=== PATIENT | female | born 1990 | race Caucasian/White ===

== ENCOUNTER 2018-10-07 18:31 | Emergency (ER) | payer SELFPAY ==
[2018-10-07 18:37] VITALS: BP 126/70; PULSE 88; TEMP 99.3; BMI 28.7
[2018-10-07 20:05] LABS: BASO % 0.6 % (0-2.0); EOS % 2.6 % (0-4.5); HEMATOCRIT 43.2 % (32.4-45.2); HEMOGLOBIN 13.8 GM/dL (10.7-15.3); LYMPH % 51.8 % (8-40); MCH 26.2 pg (25.7-33.7); MEAN CELL VOLUME 82.1 fl (80-96); MEAN PLT VOLUME 7.9 fl (7.5-11.1); MONO % 8.7 % (3.8-10.2); NEUT % 36.3 % (42.8-82.8); PLATELET COUNT 286 K/MM3 (134-434); RBC 5.26 M/mm3 (3.60-5.2); WHITE BLOOD COUNT 5.2 K/mm3 (4.0-10.0)
[2018-10-07] MEDS ORDERED: ACETAMINOPHEN 325 MG TABLET (FP) PO ONE (20:07)
[2018-10-07 20:08] LABS: HYALINE CASTS 2 /lpf (0-8); URINE APPEARANCE CLEAR; URINE BILIRUBIN NEGATIVE (NEGATIVE); URINE COLOR YELLOW; URINE GLUCOSE (UA) NEGATIVE (NEGATIVE); URINE KETONE NEGATIVE (NEGATIVE); URINE LEUK ESTERASE NEGATIVE (NEGATIVE); URINE NITRITE NEGATIVE (NEGATIVE); URINE PROTEIN NEGATIVE (NEGATIVE); URINE RBC 92 /hpf (0-4); URINE WBC 1 /hpf (0-5)
[2018-10-07 20:25] LABS: ALBUMIN 3.8 g/dl (3.4-5.0); BILIRUBIN,TOTAL 0.5 mg/dL (0.2-1); BLOOD UREA NITROGEN 10.9 mg/dL (7-18); CALCIUM 8.7 mg/dL (8.5-10.1); CREATININE 0.7 mg/dL (0.55-1.3); TOT PROT 7.9 g/dl (6.4-8.2)
--- NOTE | 2018-10-09 01:31 | PDOC ---
Documentation entered by Alicia Lugo SCRIBE, acting as scribe for Subha Nevarez MD. Subha Nevarez MD: This documentation has been prepared by the Brittney crowe Brenda, SCRIBE, under my direction and personally reviewed by me in its entirety. I confirm that the documentation accurately reflects all work, treatment, procedures, and medical decision making performed by me. History of Present Illness - General Chief Complaint: Vaginal Bleeding Stated Complaint: ABD/PAIN/BLEEDING Time Seen by Provider: 10/07/18 18:54 History Source: Patient Exam Limitations: No Limitations - History of Present Illness Initial Comments: 10/07/18 19:41 The patient is a 28 year old female (), with no significant PMH who presents to the emergency department with vaginal bleeding occurring 1 hour ago at home, at her home. As per patient she was sitting down and upon getting up on her felt, she felt bleeding that splashed on the floor, and the stain was dark red, with no clots and the size of a grapefruit. The patient does endorse dizziness, SOB, nausea and intermittent left lower quadrant pain. She notes being sexually active with her , but denies possible . Patient also reports being tested for syphilis 2 months ago and came back positive. LMP was 09/16/18. The patient denies chest pain. Denies vomiting, diarrhea and constipation. Denies dysuria, frequency, urgency. Allergies: NKA Social history: None reported Past History - Past Medical History Allergies/Adverse Reactions: Allergies Allergy/AdvReac Type Severity Reaction Status Date / Time No Known Allergies Allergy Verified 10/07/18 18:36 Home Medications: Ambulatory Orders NK [No Known Home Medication] 10/07/18 COPD: No Other medical history: endomitriosis - Suicide/Smoking/Psychosocial Hx Smoking History: Never smoked Information on smoking cessation initiated: No Hx Alcohol Use: No Drug/Substance Use Hx: No Review of Systems - Review of Systems Able to Perform ROS?: Yes Comments:: 10/07/18 19:41 CONSTITUTIONAL: Absent: no chills, no fatigue EYES: Absent: visual changes ENT: Absent: ear pain, no sore throat CARDIOVASCULAR: Absent: chest pain, no palpitations RESPIRATORY:(+) SOB Absent: cough. GI: (+) Left lower quadrant abdominal pain. (+) Nausea. Absent: No vomiting, no constipation, no diarrhea GENITOURINARY: (+) Vaginal bleeding. Absent: dysuria, no frequency. MUSKULOSKELETAL: Absent: back pain, no arthralgia, no myalgia SKIN: Absent: rash NEURO: (+) Headache. (+) Dizziness. Absent: *Physical Exam - Vital Signs Last Vital Signs Temp Pulse Resp BP Pulse Ox 99.3 F 88 19 126/70 100 10/07/18 18:34 10/07/18 18:34 10/07/18 18:34 10/07/18 18:34 10/07/18 18:34 - Physical Exam Comments: 10/07/18 20:17 GENERAL: Well-appearing, well-nourished. No apparent distress. HEENT: Normocephalic, atraumatic. PERRL, EOM intact. CARDIOVASCULAR: Normal S1, S2. Regular rate and rhythm. PULMONARY: Clear to auscultation bilaterally. ABDOMEN: (+) Mild adnexal tenderness Soft, non-distended, non-tender. : (+) Mild blood in vaginal vault No CMT, No clots. EXTREMITIES: Normal ROM in all four extremities. No gross deformities. SKIN: Warm, dry. No rash NEUROLOGICAL: No focal neurological deficits. ED Treatment Course - LABORATORY CBC & Chemistry Diagram: 10/07/18 19:50 10/07/18 19:50 - ADDITIONAL ORDERS Additional order review: Laboratory Results 10/07/18 10/07/18 10/07/18 19:50 19:50 19:50 Sodium 141 Potassium 4.0 Chloride 107 Carbon Dioxide 29 Anion Gap 5 L BUN 10.9 Creatinine 0.7 Est GFR (CKD-EPI)AfAm 136.66 Est GFR (CKD-EPI)NonAf 117.91 Random Glucose 88 Calcium 8.7 Total Bilirubin 0.5 AST 18 ALT 22 Alkaline Phosphatase 93 Total Protein 7.9 Albumin 3.8 Serum , Qual Negative Urine Color Yellow Urine Appearance Clear Urine pH 6.0 Ur Specific [place] 1.016 Urine Protein Negative Urine Glucose (UA) Negative Urine Ketones Negative Urine Blood 3+ H Urine Nitrite Negative Urine Bilirubin Negative Urine Urobilinogen 1.0 Ur Leukocyte Esterase Negative Urine WBC (Auto) 1 Urine RBC (Auto) 92 Urine Casts (Auto) 2 U Epithel Cells (Auto) 3.0 Urine Bacteria (Auto) 34.0 Urine HCG, Qual 10/07/18 19:50 Sodium Potassium Chloride Carbon Dioxide Anion Gap BUN Creatinine Est GFR (CKD-EPI)AfAm Est GFR (CKD-EPI)NonAf Random Glucose Calcium Total Bilirubin AST ALT Alkaline Phosphatase Total Protein Albumin Serum , Qual Urine Color Urine Appearance Urine pH Ur Specific [place] Urine Protein Urine Glucose (UA) Urine Ketones Urine Blood Urine Nitrite Urine Bilirubin Urine Urobilinogen Ur Leukocyte Esterase Urine WBC (Auto) Urine RBC (Auto) Urine Casts (Auto) U Epithel Cells (Auto) Urine Bacteria (Auto) Urine HCG, Qual Negative - RADIOLOGY Radiology Studies Ordered: Category Date Time Status TRANSVAGINAL ULTRASOUND US [US] Stat Ultrasound 10/07/18 20:24 Ordered Medical Decision Making - Medical Decision Making 10/07/18 20:28 -year-old female who's last menstrual period was September 16 of this year developed some vaginal bleeding and left adnexal pain this afternoon. Past medical history G1, para 1 no fever, chills, nausea, vomiting or diarrhea. 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
== END 2018-10-07 21:55 | disposition home or self-care (01) ==
LOC: JER 18:31
DX: N93.8 Other specified abnormal uterine and vaginal bleeding (principal); R10.2 Pelvic and perineal pain; Z86.19 Personal history of other infectious and parasitic diseases
CPT/HCPCS: 36415; 76830-TC; 80053; 81003; 84703; 85025; 99283-25